=== PATIENT | female | born 1965 | race American Indian/Alaskan Native ===

== ENCOUNTER 2018-05-25 07:19 | Day surgery (SDC) | payer OTHER ==
[2018-05-25 08:06] VITALS: BMI 34.5
[2018-05-25 08:35] VITALS: O2SAT 100
[2018-05-25] MEDS ORDERED: Lactated Ringer's 1,000 ML IV ONE (10:40)
--- NOTE | 2018-05-25 10:41 | CP.SDSHP ---
Same Day Surgery H & P - History Proposed Procedure: colonoscopy Pre-Op Diagnosis: screening - Previous Medical/Surgical History Cardiac: Hypertension Endocrine/Metabolic: Diabetes Previous Surgical History: none - Allergies Allergies: Allergies No Known Allergies Allergy (Verified 03/01/18 17:04) - Current Medications Current Medications: reviewed, per reconciliation - Physical Exam General Appearance: wdwn nad Vital Signs: Vital Signs 05/25/18 08:20 Temperature 97 F L Pulse Rate 56 L Respiratory 19 Rate Blood Pressure 154/77 H O2 Sat by Pulse 100 Oximetry Mental Status: Alert & Oriented x3 Heart: WNL Lungs: WNL GI: WNL - {Optional Preform as Required} Abdomen: WNL - Impression Impression: colon screening Pt. Evaluated Today:Candidate for Anesthesia & Procedure: Yes - Date & Time Date: 05/25/18 Time: 10:41 Short Stay Discharge - Short Stay Discharge Admitting Diagnosis/Reason for Visit: SCREENING Disposition: HOME/ ROUTINE
[2018-05-25] MEDS ORDERED: Propofol 10 mg/ml Inj (20 ML) ONE ×2 (10:46)
[2018-05-25 11:19] VITALS: TEMP 98.9
[2018-05-25 13:00] VITALS: BP 121/67; PULSE 59; RESP 16
== END 2018-05-25 12:45 | disposition home or self-care (01) ==
LOC: C.ENDO 07:19
PROVIDERS: ATTEND Internal Medicine Gastroenterology
DX: Z12.11 Encounter for screening for malignant neoplasm of colon (principal); K64.8 Other hemorrhoids
CPT/HCPCS: 45378; 82948; 84703; J2001; J2704; J7120